=== PATIENT | male | born 1955 | race Caucasian/White ===

== ENCOUNTER → 2018-01-04 | Outpatient (CLI) | payer BC ==
--- NOTE | 2018-01-04 17:54 | RADIOLOGY REPORT (SQ) ---
EXAM DESCRIPTION: HAND LEFT 3 VIEWS COMPLETED DATE/TIME: 01/04/2018 4:28 pm REASON FOR STUDY: GANGLION, LEFT HAND M67.442 GANGLION, LEFT HAND COMPARISON: None. EXAM PARAMETERS: NUMBER OF VIEWS: Three views. TECHNIQUE: AP, lateral and oblique radiographic images acquired of the left hand. LIMITATIONS: None. FINDINGS: MINERALIZATION: Normal. BONES: No acute fracture or dislocation. No worrisome bone lesions. No significant osteophytes. JOINTS: Erosive or destructive changes involving the proximal interphalangeal joint of the 5th digit resulting in nonvisualization of the articulating surfaces. The SOFT TISSUES: Focal soft tissue swelling proximal interphalangeal joint. OTHER: No other significant finding. IMPRESSION: Focal soft tissue swelling proximal interphalangeal joint of the 5th digit. Interphalan geal joint suboptimally visualized secondary to lytic or erosive changes predominately involving the lateral aspect of the joint. Uncertain whether this represents acute or chronic change. Recommend c linical correlation particularly to exclude infectious etiology TECHNICAL DOCUMENTATION: JOB ID: [id number] [employer] All Rights Reserved
== END ==
LOC: OD 16:17
PROVIDERS: ATTEND Family Medicine
DX: M67.442 Ganglion, left hand (principal)